=== PATIENT | female | born 1945 | race Hispanic/Latino ===

== ENCOUNTER 2023-12-25 23:07 | Emergency (ER) | payer MEDICARE ==
[~2023-12-25] VITALS: Ht 157.5 cm; Wt 70.8 kg
[2023-12-25] MEDS: MORPHINE 4 MG SYG IVP ONE (23:54)
[2023-12-25] MEDS: ONDANSETRON 4MG INJ IVP ONE (23:54)
[2023-12-26 00:11] VITALS: BP 167/58; PULSE 73; RESP 19; O2SAT 98
[2023-12-26] MEDS: PROPOFOL 10 MG/ML 20ML VIAL IV SCH (01:03)
== END 2023-12-26 02:02 ==
LOC: EDH 23:07
DX: T84.020A Dislocation of internal right hip prosthesis, initial encounter (principal)
CPT/HCPCS: 99284; 96374; 96375; 73502; 27250; 72170; J2405; J2270; J2704; J3490

== ENCOUNTER 2024-01-08 02:52 | Emergency (ER) | payer MEDICARE ==
[~2024-01-08] VITALS: Ht 152.4 cm; Wt 61.2 kg
[2024-01-08] MEDS: KETOROLAC 30MG VIAL (30MG/ML) IVP ONE (03:47)
[2024-01-08] MEDS: ETOMIDATE 20MG VIAL IVP ONE (05:12)
[2024-01-08 10:47] VITALS: BP 164/82; PULSE 84; RESP 18; O2SAT 98
== END 2024-01-08 10:49 ==
LOC: EDH 02:52
DX: T84.020A Dislocation of internal right hip prosthesis, initial encounter (principal); E78.00 Pure hypercholesterolemia, unspecified; F03.90 Unspecified dementia, unspecified severity, without behavioral disturbance, psychotic disturbance, mood disturbance, and anxiety; I50.9 Heart failure, unspecified; J44.9 Chronic obstructive pulmonary disease, unspecified; K21.9 Gastro-esophageal reflux disease without esophagitis; Z86.73 Personal history of transient ischemic attack (TIA), and cerebral infarction without residual deficits
CPT/HCPCS: 99285; 27265; 96374; 72170 ×2; J1885; J3490

== ENCOUNTER 2024-01-24 15:49 | Emergency (ER) | payer MEDICARE ==
[~2024-01-24] VITALS: Ht 152.4 cm; Wt 61.2 kg
[2024-01-24] MEDS ORDERED: PROPOFOL 10 MG/ML 20ML VIAL IV ONE (16:11)
[2024-01-24] MEDS ORDERED: PROPOFOL 10 MG/ML 20ML VIAL IV SCH (17:00)
[2024-01-24 19:33] VITALS: BP 157/58; PULSE 70; RESP 20; O2SAT 98
[2024-01-26] MEDS ORDERED: METO-408 PO (20:56)
[2024-01-26] MEDS ORDERED: AMLO-258 PO (20:56)
[2024-01-26] MEDS ORDERED: TRAM50TA4 PO (21:14)
[2024-01-26] MEDS ORDERED: FERSL PO (21:14)
[2024-01-26] MEDS ORDERED: ATOR10 PO (21:14)
[2024-01-26] MEDS ORDERED: DONE10TA43 PO (21:14)
[2024-01-26] MEDS ORDERED: MELA5CAP PO (21:14)
[2024-01-26] MEDS ORDERED: PROP1DRO4 OP (21:14)
[2024-01-26] MEDS ORDERED: HYDR25TA67 PO (21:14)
[2024-01-26] MEDS ORDERED: EPOE10003 SQ (21:14)
[2024-01-26] MEDS ORDERED: SERT-438 PO (21:14)
[2024-01-26] MEDS ORDERED: LOSA100T59 PO (21:14)
[2024-01-26] MEDS ORDERED: LORA10TA7 PO (21:14)
[2024-01-26] MEDS ORDERED: ERGO800010 PO (21:14)
[2024-01-26] MEDS ORDERED: OMEP20CA12 PO (21:14)
[2024-01-26] MEDS ORDERED: ASPI-1197 PO (21:14)
[2024-01-26] MEDS ORDERED: FURO20TA4 PO (21:14)
[2024-01-26] MEDS ORDERED: VITAD50000 PO (21:14)
[2024-01-26] MEDS ORDERED: MVIT PO (21:14)
[2024-01-26] MEDS ORDERED: FOLI20CA PO (21:14)
[2024-01-26] MEDS ORDERED: RISP1TAB89 PO (21:14)
== END 2024-01-24 20:01 ==
LOC: EDH 15:49
DX: T84.020A Dislocation of internal right hip prosthesis, initial encounter (principal); E78.00 Pure hypercholesterolemia, unspecified; F03.90 Unspecified dementia, unspecified severity, without behavioral disturbance, psychotic disturbance, mood disturbance, and anxiety; J44.9 Chronic obstructive pulmonary disease, unspecified; K21.9 Gastro-esophageal reflux disease without esophagitis; I50.9 Heart failure, unspecified; Z79.82 Long term (current) use of aspirin; Z79.899 Other long term (current) drug therapy; Z86.73 Personal history of transient ischemic attack (TIA), and cerebral infarction without residual deficits; X58.XXXA Exposure to other specified factors, initial encounter; Y93.89 Activity, other specified; Y92.89 Other specified places as the place of occurrence of the external cause; Y99.8 Other external cause status
CPT/HCPCS: 99284; 27265; 73502; 72170; J2704; J3490